=== PATIENT | female | born 1955 ===

== ENCOUNTER 2021-06-20 17:56 | Emergency (ER) | payer OTHER ==
[~2021-06-20] VITALS: Ht 173 cm; Wt 79.5 kg
[2021-06-20 18:28] VITALS: TEMP 98.7
[2021-06-20 19:04] LABS: BASO % 0.4 % (0.0-2.0); EOS # 0.1 K/mm3 (0.0-0.7); EOS % 1.4 % (0-4.0); GRAN # 5.7 K/mm3 (1.4-6.5); GRAN % 62.3 % (42.2-75.2); HEMOGLOBIN 11.3 g/dl (12.5-16.0); LYMPH # 2.5 K/mm3 (1.2-3.4); LYMPH % 27.4 % (20.0-51.0); MEAN CELL VOLUME 87 fl (80.0-100.0); MEAN CORPUSCULAR HEMOGLOBIN 28 pg (27.0-31.0); MEAN CORPUSCULAR HGB CONC 32 g/dl (33.0-37.0); MEAN PLATELET VOLUME 10.1 fl (7.4-10.4); MONO # 0.7 K/mm3 (0.1-0.6); MONO % 7.9 % (1.7-9.3); PLATELET COUNT 221 K/mm3 (130-400); RED BLOOD COUNT 4.04 M/mm3 (4.10-5.30); REDCELL DISTRIBUTION WIDTH-CV 13.6 % (11.5-14.5)
[2021-06-20 19:05] LABS: HEMATOCRIT 35.2 % (37.0-47.0)
[2021-06-20 19:25] LABS: ALBUMIN 3.7 gm/dL (3.4-4.8); BILIRUBIN,TOTAL 0.5 mg/dL (0.2-1.2); CALCIUM 9.2 mg/dL (8.4-10.2); CREATININE, serum 0.88 mg/dL (0.57-1.11); POTASSIUM 3.5 mmol/L (3.5-4.5); TOTAL PROTEIN 8.2 gm/dL (6.2-8.1)
[2021-06-20 19:31] LABS: TROPONIN-I 0.012 ng/mL (0.00-0.033)
[2021-06-20] MEDS ORDERED: PEPCID 20MG TAB20 MG PO (20:41)
[2021-06-20 20:58] VITALS: BP 129/70; PULSE 87
== END 2021-06-20 20:59 | disposition home or self-care (01) ==
LOC: COL.ER 17:56
PROVIDERS: Emergency Medicine
DX: R10.9 Unspecified abdominal pain (principal); R07.89 Other chest pain; D64.9 Anemia, unspecified; R74.8 Abnormal levels of other serum enzymes